=== PATIENT | female | born 1995 ===

== ENCOUNTER 2018-11-23 14:33 | Emergency (ER) | payer MEDICAID ==
[2018-11-23 19:16] LABS: SQUAMOUS EPITHIAL 3 /hpf (0-5); URINE BACTERIA FEW (<OCC); URINE BILIRUBIN NEGATIVE (NEGATIVE); URINE BLOOD NEGATIVE (NEGATIVE); URINE CLARITY Clear (Clear); URINE COLOR Yellow (YELLOW); URINE GLUCOSE (UA) NORMAL (Normal); URINE LEUKOCYTE ESTERASE 3+ Leu/uL (Negative); URINE PROTEIN NEGATIVE (NEGATIVE); URINE UROBILINOGEN NORMAL mg/dL (0.2-1.0)
[2018-11-23] MEDS ORDERED: Lactated Ringer's 1,000 ML IV ONE (19:52)
[2018-11-23 21:05] VITALS: TEMP 97.5
--- NOTE | 2018-11-23 22:34 | OBHP ---
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 , LMP unsure; VJ 01/18/19, EGA 32 weeks, prev C/S x 2 c/o blurred vision and the " lighthurting my eyes" while at work today on the computer. 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 Patie nt denies any fever, chills, (+) vomiting x 1 at 1230 hours while brushing her teeth. Has eaten only 1 meal today. Not drunk much water today. Denies sick contacts. (+) AFM; denies LOF, VB, Ctx/tighten ing of the abdomen. (+) urinary frequency x 1 week. Denies dysuria. Denies headache now, bluured vis ion; no h/o migraine headaches. Denies dizziness, lightheadedness. chest pain or shortnes sof breath. P Ob: C/S x 2: - 2010, male, 7+lb. 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 Denies h/o STI, abnormal Pap PMH: Age 10 - unclear h/o multiple admissions for GI complaints/pain. 5-7 days hospital stays PSH: C/S x 2, D_C x 1 NKDA Meds: PNV Soc Hx: denies tobacco, illicit drug or EtOH use. 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 Father alive 53 y.o., both no med issues. P.E.: as above. Mildy obese in mild discomfort. Awake, alert, oriented to time, person and place. Assessment: 23 y.o. P2012, 32 weeks, prev C/S x 2. R/O UTI. Also, probable musculoskeletal pain. H eadaches probably due to dehydration. Categoray 1 tracing. Clinically stable. Plan: 10 IVFs 2) U/A Addendum: - U/A: leuk esterase 3+ Assessment: early UTI. Patietn given tylenol and ate: feels a bit better. [place] counseled to incre ase p.o. intake of water, 1/2 body weight in ounces of water; drink glass of cranberry jjuice daily; eat small meals frequently. Encouraged to call primary Ob provider in am for F/U appointment before . Patient expressed an understanding. Discharged home in stable condition Plan: 1) Discharge home 2) reviewed S/S PTL Pelvic Type - PN: Adequate Extremities - PN: Normal Abdomen - PN: Abnormal Back - PN: Normal Breast - PN: Not Done Lungs - PN: Normal Heart - PN: Normal Thyroid - PN: Not Done Neurologic - PN: Normal HEENT - PN: Normal General - PN: Normal FHR - Baseline A Provider: 135 Contraction Comments Provider: no Comments, ACOG Physical Exam: Back: (+) low back pain over s-i joints. no CVA tenderness Abdomen: Gravid Soft. No RUQ or epigastraic tenderness. (+) suprapubic tenderness Extremties: no calf tenderness. no edema All other systems and are negative Gestation - Est Wks by US: 32.0 EGA AdmitDate IP: 32.0 Vital Signs Provider: Reviewed; Within Normal Limits IP Chief Complaint: Maternal discomfort NICHD Variability Prov Fetus A: Moderate 6-25bpm NICHD Accel Fetus A IP Provider: [id number] FHR Category Provider Fetus A: Category I NICHD Decel Fetus A IP Provider: None Dilatation, Provider: 0 Effacement, Provider: 0 Station, Provider: high Genitourinary Exam: Normal DTRs - PN: Normal
[2018-11-24 01:45] VITALS: BP 137/72; PULSE 102; RESP 18
== END 2018-11-23 20:40 | disposition home or self-care (01) ==
LOC: C.EROB 14:33
DX: O23.43 Unspecified infection of urinary tract in pregnancy, third trimester (principal); Z3A.32 32 weeks gestation of pregnancy
CPT/HCPCS: 81001; 99284; J7120